=== PATIENT | male | born 1945 | race Caucasian/White ===

== ENCOUNTER 2017-10-11 12:45 | Inpatient (IN) | payer MEDICARE, BC ==
[~2017-10-11] VITALS: Ht 175.3 cm; Wt 78.7 kg
[2017-10-11] MEDS ORDERED: HYDROmorphone 1 MG/ML, 1ML IVPush PRN (14:00)
[2017-10-11] MEDS ORDERED: ONDANSETRON 2MG/ML, 2ML IVPush ONE (14:00)
[2017-10-11 14:01] LABS: HEMATOCRIT 51.6 % (39.2-51.8); HEMOGLOBIN 17.6 g/dL (13.7-18.0); WHITE BLOOD COUNT 7.9 x10^3/uL (3.4-10)
[2017-10-11 14:08] LABS: ASPARTATE AMINO TRANSFERASE 19 U/L (15-37); BLOOD UREA NITROGEN 24 mg/dL (7-18)
[2017-10-11] MEDS ORDERED: HYDROmorphone 2 MG/ML, 1ML ONE (14:41)
[2017-10-11] MEDS ORDERED: ONDANSETRON 2MG/ML, 2ML ONE (14:42)
[2017-10-11] MEDS ORDERED: DOCUSATE 100 MG CAPSULE PO PRN (16:30)
[2017-10-11] MEDS ORDERED: HYDROmorphone 2 MG/ML, 1ML IVPush PRN (16:30)
[2017-10-11] MEDS ORDERED: POLYETHYLENE GLYCOL 17 GM PACKET PO PRN (16:30)
[2017-10-11] MEDS ORDERED: ONDANSETRON 2MG/ML, 2ML IVPush PRN (16:30)
[2017-10-11] MEDS ORDERED: ACETAMINOPHEN 325 MG TABLET PO PRN (16:30)
[2017-10-11] MEDS ORDERED: LISI-170 PO (16:46)
[2017-10-11 17:13] VITALS: BP 113/72
[2017-10-11] MEDS: OXYcodone/APAP 5/325MG TABLET PO PRN (17:43)
[2017-10-11 18:16] VITALS: BP 113/72
[2017-10-11 19:07] VITALS: BP 123/80
[2017-10-11] MEDS: DEXAMETHASONE 4 MG TABLET PO SCH (19:29)
[2017-10-11] MEDS: SODIUM CHLORIDE FLUSH 10ML SYR IVF SCH (19:50)
[2017-10-11] MEDS: NICOTINE 14MG/24 HR PATCH.TD24 TD SCH (19:55)
[2017-10-11] MEDS: METHOCARBAMOL 500 MG TABLET PO PRN (19:55)
[2017-10-12 01:49] VITALS: BP 124/74
[2017-10-12 07:24] VITALS: BP 149/91
[2017-10-12] MEDS: SENNA/DOCUSATE TABLET PO SCH (09:35)
[2017-10-12] MEDS: METHOCARBAMOL 500 MG TABLET PO PRN ×2 (09:35→16:32)
[2017-10-12] MEDS: SODIUM CHLORIDE FLUSH 10ML SYR IVF SCH ×2 (09:35→20:00)
[2017-10-12] MEDS: DEXAMETHASONE 4 MG TABLET PO SCH ×3 (09:35→18:08)
[2017-10-12] MEDS: OXYcodone/APAP 5/325MG TABLET PO PRN ×3 (09:36→19:59)
[2017-10-12] MEDS ORDERED: TEMAZEPAM 15 MG CAPSULE PO PRN (11:00)
[2017-10-12 14:00] VITALS: BP 134/85
[2017-10-12 19:15] VITALS: BP_SYST 134; BP_SYST 156; BP_DIAS 79; BP_DIAS 85
[2017-10-12] MEDS: NICOTINE 14MG/24 HR PATCH.TD24 TD SCH (20:16)
[2017-10-13] MEDS: OXYcodone/APAP 5/325MG TABLET PO PRN ×3 (05:01→17:06)
[2017-10-13 05:31] VITALS: BP 157/89
[2017-10-13] MEDS: METHOCARBAMOL 500 MG TABLET PO PRN ×2 (06:01→12:28)
[2017-10-13 07:35] VITALS: BP 164/91
[2017-10-13] MEDS ORDERED: LISINOPRIL 20 MG TABLET PO SCH (09:00)
[2017-10-13] MEDS: SENNA/DOCUSATE TABLET PO SCH (09:26)
[2017-10-13] MEDS: DEXAMETHASONE 4 MG TABLET PO SCH ×3 (09:26→17:06)
[2017-10-13] MEDS: SODIUM CHLORIDE FLUSH 10ML SYR IVF SCH (09:26)
[2017-10-13 13:04] VITALS: BP 167/93
[2017-10-13] MEDS ORDERED: LACTULOSE 20 GM/30 ML UDC PO ONE (17:00)
[2017-10-13] MEDS ORDERED: OXYC1TAB7 PO (17:02)
[2017-10-13] MEDS ORDERED: METH500T7 PO (17:02)
[2017-10-13] MEDS ORDERED: DEXA4TAB PO (17:02)
== END 2017-10-13 18:17 | disposition home or self-care (01) | DRG 552 ==
LOC: SUATTDRO 15:47 → ED 16:00 → 3NE 16:01 → ED 16:52
PROVIDERS: ADMIT Family Medicine; ATTEND Family Medicine
DX: M48.061 Spinal stenosis, lumbar region without neurogenic claudication (principal); M41.9 Scoliosis, unspecified; M54.40 Lumbago with sciatica, unspecified side; Z82.3 Family history of stroke; I10 Essential (primary) hypertension; F17.200 Nicotine dependence, unspecified, uncomplicated; Z88.8 Allergy status to other drugs, medicaments and biological substances
CPT/HCPCS: 36415; 71010; 72114; 80053; 85025; 85610; 85730; 93005; 96374; 96375; J1170; J2405

== ENCOUNTER 2017-10-19 07:57 | Observation (INO) | payer MEDICARE, BC, OTHER ==
[~2017-10-19] VITALS: Ht 175.3 cm; Wt 86.6 kg
[~2017-10-19 07:57] MED LIST: BACITRACIN 50,000 UNIT ONE; BACITRACIN OINT 500U/GM, 15 GM ONE; BUPIVACAINE/PF 0.5% ONE; DEXA4TAB PO; EPINEPHRINE 1 MG/ML, 1ML ONE; LISI-170 PO; METH500T7 PO; OXYC1TAB7 PO; THROMBIN 5,000 UNIT VIAL TP ONE
[2017-10-19] MEDS ORDERED: LACTATED RINGERS 1,000 ML IV SCH (09:25)
[2017-10-19] MEDS ORDERED: ASPI-496 PO (09:28)
[2017-10-19 09:37] VITALS: BP 142/90
[2017-10-19] MEDS ORDERED: MIDAZOLAM 1 MG/ML, 2ML ONE (11:32)
[2017-10-19] MEDS ORDERED: LIDOCAINE GEL 2%, 5ML ONE (11:34)
[2017-10-19] MEDS ORDERED: PROPOFOL 10 MG/ML, 20ML ONE (11:34)
[2017-10-19] MEDS ORDERED: FENTANYL PF 250 MCG/5ML ONE (11:34)
[2017-10-19] MEDS ORDERED: SUCCINYLCHOLINE 20 MG/ML, 10ML ONE (11:34)
[2017-10-19] MEDS ORDERED: ROCURONIUM 10 MG/ML,10ML ONE (11:34)
[2017-10-19] MEDS ORDERED: CEFAZOLIN 1,000 MG ONE (11:44)
[2017-10-19] MEDS ORDERED: ONDANSETRON 2MG/ML, 2ML ONE (11:44)
[2017-10-19] MEDS ORDERED: DEXAMETHASONE 4 MG/ML, 1ML ONE (11:44)
[2017-10-19] MEDS ORDERED: MEPERIDINE/PF 25MG/0.5ML IVPush PRN (12:30)
[2017-10-19] MEDS ORDERED: PROMETHAZINE 25 MG/ML, 1ML IV PRN (12:30)
[2017-10-19] MEDS ORDERED: ALBUTEROL SULFATE 2.5 MG/3 ML NPPB PRN (12:30)
[2017-10-19] MEDS ORDERED: hydrALAzine 20 MG/ML, 1ML IV PRN (12:30)
[2017-10-19] MEDS ORDERED: LABETALOL 5MG/ML, 20ML IV PRN (12:30)
[2017-10-19] MEDS ORDERED: ACETAMINOPHEN 325 MG TABLET PO PRN (12:30)
[2017-10-19] MEDS ORDERED: MIDAZOLAM 1 MG/ML, 2ML IV PRN (12:30)
[2017-10-19] MEDS ORDERED: ONDANSETRON 2MG/ML, 2ML IVPush PRN ×2 (12:30→14:00)
[2017-10-19] MEDS ORDERED: OXYcodone 5 MG/5 ML ORAL.SOL UDC PO PRN (12:30)
[2017-10-19] MEDS ORDERED: FENTANYL PF 100 MCG/2ML ONE (13:46)
[2017-10-19] MEDS ORDERED: MAGNESIUM HYDROXIDE 8%, 30ML UDC PO PRN (14:00)
[2017-10-19] MEDS ORDERED: LABETALOL 5MG/ML, 20ML IVPush PRN (14:00)
[2017-10-19] MEDS ORDERED: HYDROmorphone 1 MG/ML, 1ML IVPush PRN (14:00)
[2017-10-19] MEDS ORDERED: DIPHENHYDRAMINE 50 MG CAPSULE PO PRN (14:00)
[2017-10-19] MEDS ORDERED: BISACODYL 10 MG SUPP PR PRN (14:00)
[2017-10-19] MEDS: FENTANYL PF 100 MCG/2ML IV PRN ×2 (14:00→14:05)
[2017-10-19] MEDS ORDERED: PHARMACY MAY ADJ FOR RENAL FX MC PRN (14:00)
[2017-10-19] MEDS: HYDROmorphone 1 MG/ML, 1ML IV PRN ×2 (14:25→14:46)
[2017-10-19] MEDS: METHOCARBAMOL 500 MG TABLET PO PRN (14:49)
[2017-10-19] MEDS: NS + 20MEQ KCL 1,000 ML IV SCH (17:29)
[2017-10-19] MEDS: CEFAZOLIN PMX 1GM/50ML 50 ML IVPB SCH (20:04)
[2017-10-19 20:35] VITALS: BP 136/71
[2017-10-19] MEDS ORDERED: DIPHENHYDRAMINE 25 MG CAPSULE PO PRN (23:00)
[2017-10-19] MEDS: OXYcodone/APAP 5/325MG TABLET PO PRN (23:04)
[2017-10-20 00:01] VITALS: BP 148/78
[2017-10-20] MEDS: HYDROcodone/APAP 5/325 TABLET PO PRN ×5 (01:36→20:30)
[2017-10-20 03:54] VITALS: BP 148/78
[2017-10-20] MEDS: CEFAZOLIN PMX 1GM/50ML 50 ML IVPB SCH (04:32)
[2017-10-20] MEDS: OXYcodone/APAP 5/325MG TABLET PO PRN (04:37)
[2017-10-20 07:00] VITALS: BP 157/85
[2017-10-20] MEDS: METHOCARBAMOL 500 MG TABLET PO PRN ×3 (07:44→21:01)
[2017-10-20] MEDS: LISINOPRIL 20 MG TABLET PO SCH (07:45)
[2017-10-20] MEDS: NS + 20MEQ KCL 1,000 ML IV SCH ×2 (07:45→21:01)
[2017-10-20 14:00] VITALS: BP 117/55
[2017-10-20 21:58] VITALS: BP 128/79
[2017-10-20 22:02] VITALS: BP 126/78
[2017-10-21] MEDS: HYDROcodone/APAP 5/325 TABLET PO PRN ×6 (00:05→20:41)
[2017-10-21 02:50] VITALS: BP 134/86
[2017-10-21] MEDS: METHOCARBAMOL 500 MG TABLET PO PRN (04:02)
[2017-10-21 08:33] VITALS: BP 150/82
[2017-10-21] MEDS: LISINOPRIL 20 MG TABLET PO SCH (08:37)
[2017-10-21] MEDS: NS + 20MEQ KCL 1,000 ML IV SCH (11:06)
[2017-10-21] MEDS: SENNA/DOCUSATE TABLET PO PRN (12:16)
[2017-10-21 12:31] LABS: PATH.CAST-FLAG NOT PRESENT; SPERM-FLAG NOT PRESENT; SRC-FLAG NOT PRESENT; XTAL-FLAG NOT PRESENT; YLC-FLAG NOT PRESENT
[2017-10-21 14:06] VITALS: BP 124/80
[2017-10-21] MEDS: TIZANIDINE 4MG TABLET PO PRN ×2 (14:12→22:24)
[2017-10-21 16:00] VITALS: BP 124/80
[2017-10-21] MEDS: SULFAMETH./TRIMETHOPRIM DS 800MG/160MG TABLET PO SCH (20:41)
[2017-10-21 20:47] VITALS: BP 146/90
[2017-10-22] MEDS: HYDROcodone/APAP 5/325 TABLET PO PRN ×3 (00:57→14:06)
[2017-10-22] MEDS: NS + 20MEQ KCL 1,000 ML IV SCH ×2 (01:57→12:40)
[2017-10-22 02:04] VITALS: BP 114/72
[2017-10-22] MEDS: TIZANIDINE 4MG TABLET PO PRN (06:19)
[2017-10-22 08:39] VITALS: BP 116/75
[2017-10-22] MEDS: SULFAMETH./TRIMETHOPRIM DS 800MG/160MG TABLET PO SCH (09:32)
[2017-10-22] MEDS: LISINOPRIL 20 MG TABLET PO SCH (09:32)
[2017-10-22] MEDS: SENNA/DOCUSATE TABLET PO PRN (09:32)
[2017-10-22] MEDS ORDERED: HYDR-3307 PO (13:29)
[2017-10-22] MEDS ORDERED: TIZA4TAB9 PO (13:30)
[2017-10-22] MEDS ORDERED: PHENAZOPYRIDINE 100 MG TABLET PO PRN (13:30)
[2017-10-22] MEDS ORDERED: PHEN100T90 PO (13:35)
[2017-10-22 14:12] VITALS: BP 124/70
== END 2017-10-22 14:35 | disposition home or self-care (01) ==
LOC: OUT 07:57 → 4NOR 15:45 → OUT 23:27 → 4NOR 23:27
PROVIDERS: ADMIT Neurological Surgery; ATTEND Neurological Surgery
DX: M48.061 Spinal stenosis, lumbar region without neurogenic claudication (principal); M47.26 Other spondylosis with radiculopathy, lumbar region
CPT/HCPCS: 63047; 63048; 72100; 81001; 87086; 96365; 96375; 97162; 97530; G0378; J0171; J0330; J0690; J1100; J1170; J2250; J2405; J2704; J3010; J3480; J3490; J7120